=== PATIENT | male | born 1970 | race African-American/Black ===

== ENCOUNTER 2017-04-04 04:32 | Observation (INO) | payer OTHER ==
[2017-04-04] MEDS ORDERED: HYDROmorphONE/DILAUDID 1 MG/ML INJ IVP ONE (04:40)
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
[2017-04-04] MEDS ORDERED: KETOROLAC 30 MG/1 ML SDV IVP ONE (05:56)
[2017-04-04] MEDS ORDERED: IOPAMIDOL (ISOVUE-300) 100 ML BTL ONE (06:00)
--- NOTE | 2017-04-04 07:30 | CPEKG ---
Heart Rate: 82 RR Interval: 732 P-R Interval: 180 QRSD Interval: 86 QT Interval: 348 QTC Interval: 407 P [place]: 53 QRS [place]: 33 T Wave [place]: -5 EKG Severity - BORDERLINE ECG - EKG Impression: SINUS RHYTHM EKG Impression: BORDERLINE T ABNORMALITIES, INFERIOR LEADS Electronically Signed By: Belkis Whitney 04-Apr-2017 09:01:18
--- NOTE | 2017-04-04 07:30 | CPEKG ---
Heart Rate: 82 RR Interval: 732 P-R Interval: 180 QRSD Interval: 86 QT Interval: 348 QTC Interval: 407 P [place]: 53 QRS [place]: 33 T Wave [place]: -5 EKG Severity - BORDERLINE ECG - EKG Impression: SINUS RHYTHM EKG Impression: BORDERLINE T ABNORMALITIES, INFERIOR LEADS Electronically Signed By: Belkis Whitney 04-Apr-2017 09:01:18
[2017-04-04 07:51] LABS: PLATELET COUNT 183 10^3/uL (150-400)
[2017-04-04] MEDS ORDERED: HYDROmorphONE/DILAUDID 1 MG/ML INJ IVP PRN (11:20)
[2017-04-04] MEDS ORDERED: D5W 1/2 NS W/ 20 KCl/L 1,000 ML IV SCH (13:15)
[2017-04-04] MEDS ORDERED: ONDANSETRON 4 MG/2 ML VIAL IVP PRN (13:15)
[2017-04-04] MEDS ORDERED: NON-FORMULARY NEW DRUG (Omeprazole [Prilosec 20 Mg] 20 MG) PO SCH (13:30)
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
[2017-04-04] MEDS: KETOROLAC 15 MG/1 ML SDV IVP SCH ×2 (18:00→23:42)
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
[2017-04-04] MEDS: OXYCODONE/APAP 5/325 TAB PO PRN ×2 (19:11→21:45)
[2017-04-05 04:50] LABS: PLATELET COUNT 176 10^3/uL (150-400)
[2017-04-05] MEDS: KETOROLAC 15 MG/1 ML SDV IVP SCH ×2 (05:54→11:55)
[2017-04-05] MEDS ORDERED: PANTOPRAZOLE SODIUM 40 MG TAB PO SCH (09:00)
--- NOTE | 2017-04-05 09:07 | CPEKG ---
Heart Rate: 77 RR Interval: 779 P-R Interval: 184 QRSD Interval: 90 QT Interval: 368 QTC Interval: 417 P [place]: 52 QRS [place]: 33 T Wave [place]: -11 EKG Severity - ABNORMAL ECG - EKG Impression: SINUS RHYTHM EKG Impression: ABNORMAL T, CONSIDER ISCHEMIA, INFERIOR LEADS Electronically Signed By: Kuldip Jones 05-Apr-2017 10:38:36
--- NOTE | 2017-04-05 09:07 | CPEKG ---
Heart Rate: 77 RR Interval: 779 P-R Interval: 184 QRSD Interval: 90 QT Interval: 368 QTC Interval: 417 P [place]: 52 QRS [place]: 33 T Wave [place]: -11 EKG Severity - ABNORMAL ECG - EKG Impression: SINUS RHYTHM EKG Impression: ABNORMAL T, CONSIDER ISCHEMIA, INFERIOR LEADS Electronically Signed By: Kuldip Jones 05-Apr-2017 10:38:36
--- NOTE | 2017-04-05 09:07 | CPEKG ---
Heart Rate: 77 RR Interval: 779 P-R Interval: 184 QRSD Interval: 90 QT Interval: 368 QTC Interval: 417 P [place]: 52 QRS [place]: 33 T Wave [place]: -11 EKG Severity - ABNORMAL ECG - EKG Impression: SINUS RHYTHM EKG Impression: ABNORMAL T, CONSIDER ISCHEMIA, INFERIOR LEADS Electronically Signed By: Kuldip oJnes 05-Apr-2017 10:38:36
[2017-04-05] MEDS: OXYCODONE/APAP 5/325 TAB PO PRN (09:31)
[2017-04-05 11:26] VITALS: BP 131/79; PULSE 79; RESP 15; TEMP 98.6; O2SAT 97
--- NOTE | 2017-04-05 13:31 | TRAUMAPN ---
- Problem/Surgery Performed (1) Closed fracture of manubrium Assessment/Plan: 04/05/2017 PAD#1 Assessment: Doing well. CT and xrays reviewed with patient Plan: Discharge Qualifiers: Encounter type: subsequent encounter Qualified Code(s): S22.21XA - Fracture of manubrium, initial encounter for closed fracture Subjective: No new complaints. Otherwise stable Objective: Vital Signs Temp Pulse Resp BP Pulse Ox 37.0 C 79 15 131/79 H 97 04/05/17 11:23 04/05/17 11:23 04/05/17 11:23 04/05/17 11:23 04/05/17 11:23 Laboratory Results 04/05/17 03:29 04/04/17 08:05 04/04/17 04/05/17 04/06/17 05:59 05:59 05:59 Intake Total 875 Output Total 1450 Balance -575 Physical Exam - Physical Exam General Appearance: WD/WN, alert, no apparent distress Neck: non-tender, full range of motion, supple Respiratory: chest non-tender (execpt over fracture site.), lungs clear, normal breath sounds Cardiac/Chest: regular rate, rhythm Abdomen: normal bowel sounds, non-tender Male Genitalia: deferred Rectal: deferred Back: Normal inspection Skin: normal color, warm/dry Lymphatic: no adenopathy Extremities: normal range of motion Neuro/Psych: alert, normal mood/affect, oriented x 3 Time Spent w/Patient (minutes): 15
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
== END 2017-04-05 15:43 | disposition home or self-care (01) ==
LOC: EDAGE → EDUNIT# → F2W 08:35
PROVIDERS: ADMIT Surgery; ATTEND Surgery
DX: S22.20XA Unspecified fracture of sternum, initial encounter for closed fracture (principal); S80.11XA Contusion of right lower leg, initial encounter; Y93.55 Activity, bike riding; V17.0XXA Pedal cycle driver injured in collision with fixed or stationary object in nontraffic accident, initial encounter
CPT/HCPCS: 71010; 71020; 71260; 73590; 92523; 93005; 97161; 97166; G0378; 82947-QW; 96374; J1170; J1885; Q9967

== ENCOUNTER → 2017-05-06 | Outpatient (CLI) | payer OTHER | LOC: FIMAGING 09:08 | PROVIDERS: ATTEND Family Medicine | DX: D18.03 Hemangioma of intra-abdominal structures (principal) ==